=== PATIENT | female | born 1970 | race Caucasian/White ===

== ENCOUNTER 2017-01-25 16:15 | Emergency (ER) | payer MEDICAID ==
[~2017-01-25] VITALS: Ht 170.2 cm; Wt 65.9 kg
[~2017-01-25 16:15] MED LIST: CRUT1EAC36; HYDR-3972 PO; PROM25TA14 PO; SULF1TAB49 PO
[2017-01-25] MEDS ORDERED: normal saline 1000ML IV soln IVB ONE (16:45)
[2017-01-25 17:46] LABS: BASOPHILS # (AUTO) 0.1 X10'3 (0-0.2); BASOPHILS % (AUTO) 1.1 % (0-1); EOSINOPHILS # (AUTO) 0.1 X10'3 (0-0.9); EOSINOPHILS % (AUTO) 1.2 % (0-6); HEMATOCRIT 31.1 % (35.0-45.0); LYMPHOCYTES # (AUTO) 1.7 X10'3 (1.1-4.8); LYMPHOCYTES % (AUTO) 13.8 % (21-51); MEAN CORPUSCULAR HEMOGLOBIN 17.9 PG (27.0-31.0); MEAN CORPUSCULAR VOLUME 61.6 FL (78-98); MEAN PLATELET VOLUME 7.9 FL (7.4-10.4); MONOCYTES # (AUTO) 0.6 X10'3 (0-0.9); MONOCYTES % (AUTO) 4.7 % (2-12); NEUTROPHILS % (AUTO) 79.2 % (42-75); PLATELET COUNT 505 X10'3 (140-440); RED BLOOD COUNT 5.05 X10'6 (4.20-5.60); RED CELL DISTRIBUTION WIDTH 21.9 % (11.5-14.5); WHITE BLOOD COUNT 12.6 X10'3 (4.5-11.0)
[2017-01-25 17:56] LABS: AMMONIA < 10 UMOL/L (11-32)
[2017-01-25 18:03] LABS: ANISOCYTOSIS 3+; ELLIPTOCYTES FEW; HYPOCHROMASIA 2+; LACTIC SEPSIS 1.3 MMOL/L (0.4-2.0); MICROCYTOSIS 2+; PLATELET ESTIMATE INCREASED; POLYCHROMASIA FEW; TARGET CELLS FEW; TEAR DROP CELLS FEW
[2017-01-25 18:04] LABS: SCHISTOCYTES FEW
[2017-01-25] MEDS ORDERED: glucagon, human recombinant 1mg kit SUBCUT PRN (18:10)
[2017-01-25] MEDS ORDERED: dextrose 50%-water 50ml dispensing syringe IV PRN ×2 (18:10)
[2017-01-25 18:15] LABS: ALANINE AMINOTRANSFERASE 29 U/L (12-78); ALBUMIN 3.5 G/DL (3.4-5.0); ALBUMIN/GLOBULIN RATIO 0.8 (1.1-1.5); ALKALINE PHOSPHATASE 86 IU/L (46-116); ANION GAP 6 (8-16); ASPARTATE AMINO TRANSFERASE 34 U/L (10-37); BILIRUBIN,TOTAL 0.4 MG/DL (0.1-1.0); BLOOD UREA NITROGEN 15 MG/DL (7-18); BUN/CREATININE RATIO 22.4 (6.6-38.0); CALCIUM 10.1 MG/DL (8.5-10.1); CHLORIDE 106 MMOL/L (99-107); CREATININE 0.67 MG/DL (0.40-0.90); GLUCOSE 91 MG/DL (70-104); POTASSIUM 4.2 MMOL/L (3.5-5.1); SODIUM 141 MMOL/L (135-145); TOTAL CARBON DIOXIDE 28.6 MMOL/L (24-32); TOTAL PROTEIN 7.8 G/DL (6.4-8.2); eGFR > 90 ML/MIN
[2017-01-25 18:24] LABS: CREATINE KINASE 470 U/L (26-192); ETHANOL < 0.010 GM/DL (0.0-0.010)
[2017-01-25 18:27] LABS: ACETAMINOPHEN < 2.0 UG/ML (10-30)
[2017-01-25] MEDS ORDERED: dexamethasone sod phosphate 10mg/ml inj IV STA (18:33)
[2017-01-25] MEDS ORDERED: dexamethasone 4mg/ml inj IV STA (18:33)
[2017-01-25 19:45] VITALS: BP 141/85
== END 2017-01-25 19:47 | disposition short-term general hospital (02) ==
LOC: ER 16:15
DX: I63.8 Other cerebral infarction (principal); R47.01 Aphasia; G93.41 Metabolic encephalopathy; F15.10 Other stimulant abuse, uncomplicated; Z59.0 Homelessness; Z98.890 Other specified postprocedural states; Z87.440 Personal history of urinary (tract) infections
CPT/HCPCS: 36415; 70450; 71010; 80053; 80320; 80329; 82140; 82550; 82948; 83605; 84439; 84443; 84484; 85025; 87040; 93005; 96361; 96374; 96375; 99291; J1100; J7030; C1758